=== PATIENT | female | born 1945 | race Caucasian/White ===

== ENCOUNTER → 2017-04-11 | Day surgery (SDC) | payer MEDICARE, MEDICAID ==
[~2017-04-11] VITALS: Ht 175.3 cm; Wt 62.3 kg
[~2017-04-11] MED LIST: BENADRYL25 MG PO; EFFEXOR XR150 MG PO; FLONASE 50 MCG/16 GM NOSE; FOSAMAX70 MG PO; MIRALAX17 GM PO; NEURONTIN100 MG PO; NORCO 10-325 T1 EACH PO; PROTONIX40 MG PO; REGLAN5 MG PO; TYLENOL EXTRA500 MG PO; VALIUM5 MG PO; VITAMIN B-1000 MCG/M SUB-Q; VITAMIN D350000 UNIT PO
== END | disposition disaster alternative care site (69) ==
LOC: GPOC 04-05 10:00 → GEND 06:58 → GPOC 07:30
PROC: 0D738ZZ Dilation of Lower Esophagus, Via Natural or Artificial Opening Endoscopic (ICD-10-PCS; principal; 2017-04-11)
PROC: 0W3P8ZZ Control Bleeding in Gastrointestinal Tract, Via Natural or Artificial Opening Endoscopic (ICD-10-PCS; 2017-04-11)
DX: K25.4 Chronic or unspecified gastric ulcer with hemorrhage (principal); G43.909 Migraine, unspecified, not intractable, without status migrainosus; F32.9 Major depressive disorder, single episode, unspecified; F41.9 Anxiety disorder, unspecified; D64.9 Anemia, unspecified; Z98.84 Bariatric surgery status; Z96.651 Presence of right artificial knee joint; Z96.641 Presence of right artificial hip joint; Z90.49 Acquired absence of other specified parts of digestive tract; Z98.890 Other specified postprocedural states; Z79.899 Other long term (current) drug therapy; Z88.0 Allergy status to penicillin; Z88.2 Allergy status to sulfonamides; Z88.8 Allergy status to other drugs, medicaments and biological substances
CPT/HCPCS: C1726; J2001; J7030